=== PATIENT | male | born 1960 | race Caucasian/White ===

== ENCOUNTER 2024-07-21 18:19 | Emergency (ER) | payer SELFPAY ==
[~2024-07-21] VITALS: Ht 182.9 cm; Wt 109.0 kg
[2024-07-21 18:21] VITALS: BP 12/78; RESP 18; O2SAT 95
[2024-07-21 18:53] LABS: Basophils # (auto) 0.1 10 ^3/uL (0-0.2); Eosinophils # (auto) 0.3 10 ^3/uL (0-0.8); Eosinophils % (auto) 3.8 % (0.0-7.0); Hematocrit 46.9 % (41.0-53.0); Hemoglobin 16.1 g/dL (13.5-17.5); Lymphocytes # (auto) 1.7 10 ^3/uL (0.4-5.4); Lymphocytes % (auto) 22.8 % (10.0-50.0); Mean Corpuscular Hemoglobin 31.2 pg (28.0-32.0); Mean Corpuscular Hgb Conc. 34.4 g/dL (32.0-36.0); Mean Corpuscular Volume 90.6 fL (80.0-100.0); Monocytes # (auto) 0.5 10 ^3/uL (0-1.3); Neutrophils % (auto) 65.4 % (37.0-80.0); Platelet Count (auto) 524 10^3/uL (140-450); Red Blood Cells 5.18 10^6/uL (4.5-5.90); Red Cell Distribution Width 14.4 % (11.8-14.3); White Blood Cell 7.6 10^3/uL (4.4-10.8)
[2024-07-21 19:07] VITALS: PULSE 75
[2024-07-21 19:15] LABS: Alanine Aminotransferase 34 U/L (7-40); Albumin 4.3 g/dL (3.2-4.8); Alkaline Phosphatase 73 U/L (46-116); Anion Gap 7 (5-15); Aspartate Aminotransferase 22 U/L (13-40); BUN/Creatinine Ratio 21.7 (10.0-20.0); Bilirubin, Total 0.5 mg/dL (0.2-1.0); Blood Urea Nitrogen 18 mg/dL (9-23); Calcium 9.5 mg/dL (8.7-10.4); Carbon Dioxide 27 mmol/L (20-30); Chloride 104 mmol/L (98-107); Glucose 96 mg/dL (74-106); Potassium 3.9 mmol/L (3.5-5.1); Sodium 138 mmol/L (136-145); Total Protein 7.2 g/dL (5.7-8.2)
== END 2024-07-21 19:45 | disposition left against medical advice (07) ==
LOC: EDBD 18:19 → ER 18:19
DX: R07.89 Other chest pain (principal); R20.0 Anesthesia of skin; E78.00 Pure hypercholesterolemia, unspecified; J45.909 Unspecified asthma, uncomplicated; Z88.0 Allergy status to penicillin; Z88.2 Allergy status to sulfonamides
CPT/HCPCS: 36415; 80053; 84484; 85025; 93005